=== PATIENT | female | born 1940 | race Caucasian/White ===

== ENCOUNTER 2021-09-04 13:44 | Outpatient (CLI) | payer MEDICARE, BC | END 2021-09-04 13:45 | disposition home or self-care (01) | LOC: CSHMAMMO 13:44 | PROVIDERS: ATTEND Family Medicine | DX: Z12.31 Encounter for screening mammogram for malignant neoplasm of breast (principal); M85.80 Other specified disorders of bone density and structure, unspecified site; Z91.89 Other specified personal risk factors, not elsewhere classified | CPT/HCPCS: 77063; 77067; 77080 ==

== ENCOUNTER 2022-09-05 10:56 | Outpatient (CLI) | payer MEDICARE, BC | END 2022-09-05 10:57 | disposition home or self-care (01) | LOC: CSHMAMMO 10:56 | PROVIDERS: ATTEND Family Medicine | DX: Z12.31 Encounter for screening mammogram for malignant neoplasm of breast (principal); Z91.89 Other specified personal risk factors, not elsewhere classified | CPT/HCPCS: 77063; 77067 ==

== ENCOUNTER 2024-09-17 10:23 | Outpatient (CLI) | payer MEDICARE | END 2024-09-17 10:24 | disposition home or self-care (01) | LOC: CSHMAMMO 10:23 | PROVIDERS: ATTEND Family Medicine | DX: Z12.31 Encounter for screening mammogram for malignant neoplasm of breast (principal) | CPT/HCPCS: 77063; 77067 ==